=== PATIENT | female | born 1955 | race American Indian/Alaskan Native ===

== ENCOUNTER 2016-12-08 08:03 | Outpatient (CLI) | payer MEDICARE ==
--- NOTE | 2016-12-08 08:37 | XRay Report ---
ROUTINE CHEST, TWO VIEWS: PA and lateral views demonstrate the heart and mediastinal contour to be of normal size and shape. The lungs are clear and fully expanded and the soft tissues and bony structures are normal. IMPRESSION: Normal study.
--- NOTE | 2016-12-08 09:27 | Nuclear Medicine Report ---
Ventilation/perfusion lung scan. Findings: The ventilation study demonstrates minimal heterogeneous appearance in the upper lobes on inhalation phase and to a lesser degree on the equilibrium phase. Moderate air trapping is seen in the upper lung zones bilaterally on the washout phase. The perfusion scan demonstrates areas of relatively matching heterogeneous activity pattern in the upper lung zones, again more pronounced on the right. No additional focal findings are seen. Impression: Matching ventilation perfusion abnormalities consistent with a low probability of embolic disease.
--- NOTE | 2016-12-08 16:10 | Vascular Lab Report ---
LOWER EXTREMITY VENOUS DUPLEX: REASON FOR EXAM: Swelling of the lower extremities. COMMENTS ON THE RIGHT: All veins visualized are freely compressible without evidence of internal echogenicity. Flow is spontaneous and phasic throughout. COMMENTS ON THE LEFT: All veins visualized are freely compressible without evidence of internal echogenicity. Flow is spontaneous and phasic throughout. IMPRESSION: No evidence of acute or chronic deep venous thrombosis in either lower extremity.
== END 2016-12-08 08:04 | disposition home or self-care (01) ==
LOC: NM 08:03
PROVIDERS: ATTEND Internal Medicine
DX: R79.1 Abnormal coagulation profile (principal)
CPT/HCPCS: 71020; 78582; 93970; A9540; A9558

== ENCOUNTER 2017-02-09 18:17 | Emergency (ER) | payer MEDICARE ==
[2017-02-09] MEDS ORDERED: BABY ASPIRIN PO ONE (22:20)
[2017-02-09] MEDS ORDERED: TORADOL IV ONE (22:28)
--- NOTE | 2017-02-09 22:30 | Emergency Department Report ---
<CLAUDIA RICHARD IEvelio - Last Filed: 02/10/17 04:38> ED Lower Extremity HPI - General Chief Complaint: Extremity Injury, Lower Stated Complaint: Leg pain Time Seen by Provider: 02/09/17 22:19 Source: patient Mode of arrival: Ambulatory Limitations: No Limitations - History of Present Illness Initial Comments: Patient is a 61-year-old female with history of hypertension, diabetes, and COPD on 2 L nasal cannula presented to the ER with 2 weeks of right leg pain. Patient reports she first noticed pain behind her right knee which has now migrated to her right calf. The pain is intermittent, and sharp in nature. Patient reports her repairer [employer] has sent her for some tests and Dopplers and there were negative for clots 2 weeks ago however the pain has now migrated and increased. Patient tried any [id number] medication for the pain. Otherwise no fevers, chills, nausea, vomiting, hemoptysis, hormone therapy, history of DVT PE, history of malignancy, shortness of breath, chest pain, abdominal pain, falls, trauma, sick contacts, or travel. - Related Data Home Medications Medication Instructions Recorded Confirmed Last Taken ALPRAZolam [Xanax TAB] 0.25 mg PO BID PRN 11/15/16 01/07/17 Unknown Amlodipine Besylate [Norvasc] 5 mg PO DAILY 11/15/16 01/07/17 01/06/17 Celecoxib [celeBREX] 200 mg PO BID 11/15/16 01/07/17 01/06/17 Estradiol [Estrace] 1 mg PO QDAY 11/15/16 01/07/17 Unknown Gabapentin [Gralise] 300 mg PO BID 11/15/16 01/07/17 01/07/17 Hydrochlorothiazide [HCTZ] 25 mg PO QDAY 11/15/16 01/07/17 01/06/17 Ipratropium/Albuterol Sulfate 4 gm IH 4XD 11/15/16 01/07/17 01/06/17 [Combivent Respimat] traMADol [Ultram 50 MG tab] 50 mg PO BID 11/15/16 01/07/17 01/06/17 Paxil 25 mg PO QHS 11/18/16 01/07/17 01/06/17 Previous Rx's Medication Instructions Recorded Last Taken Type ALBUTEROL Inhaler [ProAir HFA 2 puff IH QID PRN #2 inhalation 11/20/16 01/06/17 Rx Inhaler] Albuterol Sulfate [Albuterol 0.63% 0.63 mg IH TID PRN #1 box 11/20/16 01/06/17 Rx NEBS] Cyclobenzaprine [Flexeril 10 MG 10 mg PO QHS PRN #30 tablet 11/20/16 01/06/17 Rx TAB] Glimepiride [Amaryl] 2 mg PO QAM #30 tablet 11/20/16 01/06/17 Rx Ipratropium [Atrovent NEB] 0.5 mg IH Q8HRT #1 box 11/20/16 01/06/17 Rx Nicotine [Habitrol] 7 mg TD DAILY #30 patch 11/20/16 Unknown Rx Propranolol [Inderal] 40 mg PO BID #60 tablet 11/20/16 01/06/17 Rx metFORMIN [Glucophage] 1,000 mg PO BID #60 tablet 11/20/16 01/06/17 Rx Fluconazole [Diflucan TAB] 150 mg PO ONCE #1 tablet 01/10/17 Unknown Rx Levofloxacin [Levaquin TAB] 500 mg PO QDAY #5 tablet 01/10/17 Unknown Rx Prednisone [predniSONE 5 mg (6-Day 5 mg PO .TAPER #1 tab.ds.pk 01/10/17 Unknown Rx Pack, 21 Tabs)] traMADol [Ultram] 50 mg PO Q6HR PRN #10 tablet 02/10/17 Unknown Rx Allergies Allergy/AdvReac Type Severity Reaction Status Date / Time codeine Allergy Rash Verified 11/18/16 22:00 methylprednisolone sodium Allergy Itching Verified 01/07/17 04:09 succinate [From Solu-Medrol] tomatoe Allergy Itching Uncoded 11/18/16 22:02 ED Review of Systems ROS: Stated complaint: HBP Other details as noted in HPI Comment: All other systems reviewed and negative ED Past Medical Hx - Past Medical History Previous Medical History?: Yes Hx Hypertension: Yes Hx Diabetes: Yes Hx Asthma: Yes (hx of intubation) Hx COPD: Yes Additional medical history: unable to assess - Surgical History Past Surgical History?: Yes Hx Appendectomy: Yes Additional Surgical History: unable to assess - Social History Smoking Status: Former Smoker Substance Use Type: None - Medications Home Medications: Home Medications Medication Instructions Recorded Confirmed Last Taken Type ALPRAZolam [Xanax TAB] 0.25 mg PO BID PRN 11/15/16 01/07/17 Unknown History Amlodipine Besylate [Norvasc] 5 mg PO DAILY 11/15/16 01/07/17 01/06/17 History Celecoxib [celeBREX] 200 mg PO BID 11/15/16 01/07/17 01/06/17 History Estradiol [Estrace] 1 mg PO QDAY 11/15/16 01/07/17 Unknown History Gabapentin [Gralise] 300 mg PO BID 11/15/16 01/07/17 01/07/17 History Hydrochlorothiazide [HCTZ] 25 mg PO QDAY 11/15/16 01/07/17 01/06/17 History Ipratropium/Albuterol Sulfate 4 gm IH 4XD 11/15/16 01/07/17 01/06/17 History [Combivent Respimat] traMADol [Ultram 50 MG tab] 50 mg PO BID 11/15/16 01/07/17 01/06/17 History Paxil 25 mg PO QHS 11/18/16 01/07/17 01/06/17 History ALBUTEROL Inhaler [ProAir HFA 2 puff IH QID PRN #2 inhalation 11/20/16 01/07/17 01/06/17 Rx Inhaler] Albuterol Sulfate [Albuterol 0.63% 0.63 mg IH TID PRN #1 box 11/20/16 01/07/17 01/06/17 Rx NEBS] Cyclobenzaprine [Flexeril 10 MG 10 mg PO QHS PRN #30 tablet 11/20/16 01/07/17 Rx TAB] Glimepiride [Amaryl] 2 mg PO QAM #30 tablet 11/20/16 01/07/17 01/06/17 Rx Ipratropium [Atrovent NEB] 0.5 mg IH Q8HRT #1 box 11/20/16 01/07/17 01/06/17 Rx Nicotine [Habitrol] 7 mg TD DAILY #30 patch 11/20/16 01/07/17 Unknown Rx Propranolol [Inderal] 40 mg PO BID #60 tablet 11/20/16 01/07/17 01/06/17 Rx metFORMIN [Glucophage] 1,000 mg PO BID #60 tablet 11/20/16 01/07/17 01/06/17 Rx Fluconazole [Diflucan TAB] 150 mg PO ONCE #1 tablet 01/10/17 Unknown Rx Levofloxacin [Levaquin TAB] 500 mg PO QDAY #5 tablet 01/10/17 Unknown Rx Prednisone [predniSONE 5 mg (6-Day 5 mg PO .TAPER #1 tab.ds.pk 01/10/17 Unknown Rx Pack, 21 Tabs)] traMADol [Ultram] 50 mg PO Q6HR PRN #10 tablet 02/10/17 Unknown Rx ED Physical Exam - General Limitations: No Limitations General appearance: alert, in no apparent distress - Head Head exam: Present: atraumatic, normocephalic - Eye Eye exam: Present: normal appearance, PERRL, EOMI Pupils: Absent: irregular, unequal - ENT ENT exam: Present: normal exam, mucous membranes moist - Neck Neck exam: Present: normal inspection - Respiratory Respiratory exam: Present: normal lung sounds bilaterally, other (2L NC). Absent: respiratory distress, wheezes, rales, rhonchi, stridor - Cardiovascular Cardiovascular Exam: Present: regular rate, normal rhythm, normal heart sounds. Absent: irregular rhythm, systolic murmur, diastolic murmur, rubs, gallop - GI/Abdominal GI/Abdominal exam: Present: soft, normal bowel sounds. Absent: distended, tenderness, guarding, rebound, rigid - Extremities Exam Extremities exam: Present: normal inspection, full ROM, tenderness (R calf), normal capillary refill, calf tenderness (Right leg ). Absent: pedal edema, joint swelling - Back Exam Back exam: Present: normal inspection - Neurological Exam Neurological exam: Present: alert, oriented X3 - Psychiatric Psychiatric exam: Present: normal affect, normal mood - Skin Skin exam: Present: warm, dry, intact, normal color. Absent: rash ED Course Vital Signs 02/09/17 02/09/17 02/09/17 20:21 22:31 23:00 Temperature 98.0 F Pulse Rate 66 65 Respiratory 20 17 Rate Blood Pressure 240/103 Blood Pressure [Left] O2 Sat by Pulse 98 98 Oximetry 02/09/17 02/09/17 02/09/17 23:15 23:30 23:47 Temperature Pulse Rate Respiratory Rate Blood Pressure Blood Pressure 206/71 195/74 187/78 [Left] O2 Sat by Pulse Oximetry 02/10/17 02/10/17 02/10/17 00:00 00:03 00:30 Temperature Pulse Rate 63 57 L Respiratory 16 17 16 Rate Blood Pressure Blood Pressure 209/74 197/73 [Left] O2 Sat by Pulse 100 Oximetry 02/10/17 02/10/17 02/10/17 00:35 00:45 01:00 Temperature Pulse Rate 58 L 62 62 Respiratory 17 18 16 Rate Blood Pressure 185/62 182/67 Blood Pressure [Left] O2 Sat by Pulse 99 100 100 Oximetry 02/10/17 02/10/17 02/10/17 01:15 01:30 01:51 Temperature Pulse Rate 59 L 55 L 68 Respiratory 19 14 17 Rate Blood Pressure 171/51 178/64 188/67 Blood Pressure [Left] O2 Sat by Pulse 99 99 99 Oximetry 02/10/17 02/10/17 02/10/17 02:00 02:15 02:31 Temperature Pulse Rate 59 L 59 L 58 L Respiratory 16 13 15 Rate Blood Pressure 164/60 177/66 154/51 Blood Pressure [Left] O2 Sat by Pulse 100 100 99 Oximetry 02/10/17 02/10/17 02/10/17 02:45 03:00 03:15 Temperature Pulse Rate 53 L 55 L 55 L Respiratory 14 12 14 Rate Blood Pressure 145/52 169/58 143/107 Blood Pressure [Left] O2 Sat by Pulse 99 99 99 Oximetry 02/10/17 02/10/17 02/10/17 03:31 03:45 04:00 Temperature Pulse Rate 53 L 54 L 55 L Respiratory 11 L 12 12 Rate Blood Pressure 166/59 170/59 169/63 Blood Pressure [Left] O2 Sat by Pulse 99 99 99 Oximetry 02/10/17 02/10/17 02/10/17 04:15 04:31 04:45 Temperature Pulse Rate 70 69 72 Respiratory 23 32 H 26 H Rate Blood Pressure 169/63 169/85 169/85 Blood Pressure [Left] O2 Sat by Pulse 94 89 96 Oximetry 02/10/17 02/10/17 02/10/17 05:00 05:15 05:30 Temperature Pulse Rate 59 L 54 L 58 L Respiratory 20 17 16 Rate Blood Pressure 201/81 189/76 195/82 Blood Pressure [Left] O2 Sat by Pulse 98 99 95 Oximetry 02/10/17 02/10/17 02/10/17 05:45 06:01 06:15 Temperature Pulse Rate 62 58 L 53 L Respiratory 13 11 L 15 Rate Blood Pressure 196/82 177/78 192/73 Blood Pressure [Left] O2 Sat by Pulse 98 99 100 Oximetry 02/10/17 02/10/17 02/10/17 06:30 06:45 07:01 Temperature Pulse Rate 56 L 58 L 57 L Respiratory 15 15 16 Rate Blood Pressure 191/71 195/74 196/74 Blood Pressure [Left] O2 Sat by Pulse 100 100 100 Oximetry 02/10/17 02/10/17 02/10/17 07:15 07:31 07:45 Temperature Pulse Rate 63 63 61 Respiratory 16 17 13 Rate Blood Pressure 195/71 181/69 181/69 Blood Pressure [Left] O2 Sat by Pulse 100 100 90 Oximetry 02/10/17 02/10/17 08:01 08:15 Temperature Pulse Rate 66 66 Respiratory 13 13 Rate Blood Pressure 163/50 163/50 Blood Pressure [Left] O2 Sat by Pulse 92 91 Oximetry - Reevaluation(s) Reevaluation #1: 02/10/17 04:38 called to bedside for epistaxis of the R nare, attempted to apply pressure, but patient is non compliant and attempting to blow her nose every few minutes. Ordered Afrin ED Lower Extremity MDM - Lab Data Result diagrams: 02/09/17 22:34 02/09/17 22:34 - EKG Data -: EKG Interpreted by Me - EKG Data 02/09/17 22:31 Time 2030: Normal sinus rhythm at 65 bpm, QTC 436 ms, normal axis, no LVH, less then 0.[address] elevation in V2, no STEMI - Radiology Data Radiology results: image reviewed CXR: Mild fibrotic changes at the bases at visualized by me There is no staff to do a DVT study, patient will wait till the morning to have a duplex of her R leg Critical care attestation.: If time is entered above; I have spent that time in minutes in the direct care of this critically ill patient, excluding procedure time. ED Disposition Clinical Impression: Musculoskeletal pain of right lower extremity Disposition: DISCHARGED TO HOME OR SELFCARE Condition: Stable Instructions: Arthralgia (ED), Musculoskeletal Pain (ED) Additional Instructions: Follow-up with your primary care physician. Rx as needed for pain. Return any acute change or problem. Prescriptions: traMADol [Ultram] 50 mg PO Q6HR PRN #10 tablet PRN Reason: Pain Referrals: PRIMARY CARE,MD [Primary Care Provider] - 3-5 Days <SEBAS BLANCAS - Last Filed: 02/10/17 09:33> ED Physical Exam - General General appearance: alert, in no apparent distress - Head Head exam: Present: atraumatic, normocephalic - Eye Eye exam: Present: normal appearance - ENT ENT exam: Present: mucous membranes moist - Neck Neck exam: Present: normal inspection - Respiratory Respiratory exam: Present: normal lung sounds bilaterally. Absent: respiratory distress - Cardiovascular Cardiovascular Exam: Present: regular rate, normal rhythm. Absent: systolic murmur, diastolic murmur, rubs, gallop - GI/Abdominal GI/Abdominal exam: Present: soft, normal bowel sounds - Extremities Exam Extremities exam: Present: normal inspection, full ROM, normal capillary refill , other (vascular exam is normal. Extremity exam of the right lower extremity is entirely normal.). Absent: tenderness, calf tenderness - Back Exam Back exam: Present: normal inspection - Neurological Exam Neurological exam: Present: alert, oriented X3 - Psychiatric Psychiatric exam: Present: normal affect, normal mood - Skin Skin exam: Present: warm, dry, intact, normal color. Absent: rash ED Lower Extremity MDM - Lab Data Result diagrams: 02/09/17 22:34 02/09/17 22:34 Laboratory Results - last 24 hr 02/09/17 02/09/17 02/09/17 22:34 22:34 22:34 WBC 8.0 RBC 4.49 Hgb 11.5 Hct 37.5 MCV 84 MCH 26 L MCHC 31 RDW 15.5 H Plt Count 289 Lymph % (Auto) 40.9 H Bracken % (Auto) 11.2 H Eos % (Auto) 2.2 Baso % (Auto) 0.7 Lymph # 3.3 Bracken # 0.9 H Eos # 0.2 Baso # 0.1 Seg Neutrophils % 45.0 Seg Neutrophils # 3.6 PT 14.7 INR 1.16 H APTT 30.1 Sodium 143 Potassium 3.8 Chloride 101.8 Carbon Dioxide 27 Anion Gap 18 BUN 12 Creatinine 0.7 Estimated GFR > 60 BUN/Creatinine Ratio 17.14 Glucose 97 Calcium 8.9 Total Bilirubin 0.20 AST 12 ALT 6 L Alkaline Phosphatase 64 Troponin T < 0.010 Total Protein 6.3 Albumin 3.7 L Albumin/Globulin Ratio 1.4 - Radiology Data Radiology results: report reviewed (Doppler was negative) ED Disposition Is pt being admited?: No Does the pt Need Aspirin: No Time of Disposition: 09:32
[2017-02-09 22:46] LABS: Eosinophils % (Auto) 2.2 % (0.0-4.3)
[2017-02-09 22:54] LABS: Basophils % (Auto) 0.7 % (0.0-1.8); Hematocrit 37.5 % (30.3-42.9); Hemoglobin 11.5 gm/dl (10.1-14.3); Mean Corpuscular HGB Conc 31 % (30-34); Mean Corpuscular Hemoglobin 26 pg (28-32); Mean Corpuscular Volume 84 fl (79-97); Platelet Count 289 K/mm3 (140-440); Red Blood Count 4.49 M/mm3 (3.65-5.03); Red Cell Distribution Width 15.5 % (13.2-15.2)
[2017-02-09 22:57] LABS: INR 1.16 (0.87-1.13); Partial Thromboplastin Time 30.1 Sec. (24.2-36.6)
[2017-02-09 23:09] LABS: Alanine Aminotransferase 6 units/L (7-56); Albumin 3.7 g/dL (3.9-5); Albumin/Globulin Ratio 1.4 %; Alkaline Phosphatase 64 units/L (35-129); Anion Gap 18 mmol/L; BUN/Creatinine Ratio 17.14; Blood Urea Nitrogen 12 mg/dL (7-17); Calcium 8.9 mg/dL (8.4-10.2); Carbon Dioxide 27 mmol/L (22-30); Chloride 101.8 mmol/L (98-107); Glucose 97 mg/dL (65-100); Potassium 3.8 mmol/L (3.6-5.0); Sodium 143 mmol/L (137-145); Total Protein 6.3 g/dL (6.3-8.2)
[2017-02-10] MEDS ORDERED: AFRIN NS ONE (04:39)
--- NOTE | 2017-02-10 08:04 | XRay Report ---
AP CHEST : 02/09/17 18:17:00 CLINICAL: Chest pain. COMPARISON:01/10/17 FINDINGS: Normal heart and pulmonary vessels. The lungs are normally expanded and clear. The bones and soft tissues are unremarkable. IMPRESSION: Normal chest.
[2017-02-10 09:39] VITALS: BP 190/73
== END 2017-02-10 09:39 | disposition home or self-care (01) ==
LOC: ED 18:17
DX: M79.661 Pain in right lower leg (principal); I10 Essential (primary) hypertension; J44.9 Chronic obstructive pulmonary disease, unspecified; J45.909 Unspecified asthma, uncomplicated; E11.9 Type 2 diabetes mellitus without complications; Z87.891 Personal history of nicotine dependence; Z88.8 Allergy status to other drugs, medicaments and biological substances; Z88.6 Allergy status to analgesic agent; Z91.018 Allergy to other foods
CPT/HCPCS: 36415; 71010; 80053; 84484; 85025; 85610; 85730; 93005; 93010; 93971; 96374; 99284; J1885